=== PATIENT | male | born 1965 | race Caucasian/White ===

== ENCOUNTER 2022-04-19 03:10 | Inpatient (IN) ==
[2022-04-19 03:24] VITALS: BMI 27.1
--- NOTE | 2022-04-19 03:31 | DR.N/VMALE ---
HPI Time Seen Time Seen by Provider: 04/19/22 03:31 Primary Care Physician Primary Care Physician: PATY HPI Comment HPI Comment: PATIENT IS 56YR OLD MALE IN ER WITH NAUSEA, VOMITING ABDOMINAL PAIN TIMES 5 DAYS. ILLNESS STARTED WITH CONSTIPATION. PATIENT HAD LARGE BM. TOOK MILK OF MAGNESIA. NOW HAVING WATERRY STOOL. NO FEVER, DYSURIA OR CHEST PAIN. Complaints Chief Complaint Doctors Comments: ABDOMINAL PAIN, NAUSEA, VOMITING AND DIARRHEA. Chief Complaint:: PT AMBULATORY IN ED WITH C/O N/V X 5 DAYS. STARTED OFF BEING CONSTIPATED THEN HAD LARGE GOOD BM AND NOW WATERY STOOL X 3 DAYS. COVID-19 Coronavirus risk:travel/contact w/high risk person: No Has patient experienced Coronavirus symptoms: No Reviewed Nurses Notes Reviewed: Yes Source History Provided: Patient Mode of Arrival Mode of Arrival: Ambulatory Timing Onset of Chief Complaint: 04/13/22 PMH PMH Past Medical History: Yes Past Medical History: Coronary Artery Disease, Diabetes, Hypertension and [place] Past Surgical History: Yes Surgical History: Ortho Surgery Past Surgical History Comment: HEMORRHOIDECTOMY Family History History of Family Medical Conditions: Yes Family Medical History: Diabetes Mellitus, Cancer, [place], Coronary Artery Disease, Heart Failure, Sudden Cardiac and Hypertension Social History Does patient currently use any type of tobacco product: Yes Have you used tobacco products in the last 12 months: Yes Type of Tobacco Use: Cigarettes Does any household member use tobacco: No Alcohol Use: None Do you use any recreational Drugs:: Yes (METH) Lives With: Spouse Lives Where: Home Travel Risk Coronavirus risk:travel/contact w/high risk person: No Has patient experienced Coronavirus symptoms: No Infectious screening In the last 2 months have you had wt loss of >10#?: NO Have you had fever, night sweats or hemotysis?: No Have you traveled outside the country in the last 6 months?: No Isolation: Standard ROS Review of Systems Constitutional: Weakness and Fatigue; negative Fever Eyes: No Symptoms Reported ENTM: No Symptoms Reported Respiratoy: No Symptoms Reported Cardiovascular: No Symptoms Reported Gastrointestinal/Abdominal: Abdominal Pain, Constipation, Diarrhea, Nausea and Vomiting Genitourinary: No Symptoms Reported; negative Dysuria Neurological: Weakness; negative Headache or Dizziness Musculoskeletal: No Symptoms Reported; negative Muscle Pain Integumentary: No Symptoms Reported; negative Rash or Juandice Hematologic/Lymphatic: No Symptoms Reported; negative Easy Bruising Endocrine: No Symptoms Reported; negative Increased Thirst or Increased Urine Psychiatric: No Symptoms Reported All Other Systems: Reviewed and Negative PE Vital Signs Vitals: Temperature 97.9 F Pulse Rate 78 Respiratory Rate 20 Blood Pressure [Left Arm] 137/80 Blood Pressure 131/72 O2 Sat by Pulse Oximetry 98 General Limitations: No Limitations General Appearance: Alert and In No Apparent Distress Head Head Exam: Normal Inspection and Atraumatic Eyes Eye exam: Normal Appearance; negative Scleral Icterus or Conjunctival Injection ENT ENT Exam: Normal Exam; negative Normal Oropharynx, Normal External Ear Exam or Mucous Membranes Moist Neck Neck Exam: Normal Inspection and Trachea Midline; negative Tenderness Chest Chest Inspection: Normal Inspection and Symmetric Chest Wall Rise; negative Tenderness Respiratory Respiratory Exam: Normal Lung Sounds Bilat; negative Accessory Muscle Use, Chest Wall Tenderness or Respiratory Distress Respiratory Exam: Bilateral: Rhonchi Cardiovascular Cardiovascular Exam: Regular Rate, Normal Rhythm and Normal Heart Sounds; negative Systolic Murmur or Diastolic Murmur Abdominal Exam Abdominal Exam: Soft and Tenderness; negative Normal Bowel Sounds (INCREASE BOWEL SOUNDS.) Abdominal Tenderness: Diffuse and Moderate Rectal Rectal Exam: Deferred Extremities Extremities Exam: Normal Inspection and Normal Capillary Refill Back Back Exam: Normal Inspection; negative (R) CVA Tenderness or (L) CVA Tenderness Neurologic Neurological Exam: Alert and Oriented X3; negative Motor Sensory Deficit Psychiatric Psychiatric Exam: Normal Affect and Normal Mood Skin Skin Exam: Dry; negative Rash MDM Additional Information Obtained Additional Information Obtained From: Old Records Differential Diagnosis Differential Diagnosis: Considerations may Include:: Bowel Obstruction, Gastroenteritis, Inflammatory BD, Pancreatitis and Other (CONSTIPATION.) COURSE Treatment Treatment: SEE ORDERS DONE WHILE PATIENT WAS IN ER. PATIENT WAS MEDICATED FOR PAIN WHILE IN ER. Consultation Consultation Comments: DISCUSSED PATIENT WITH DR. BRISENO, SURGEON. HE WILL ADMIT PATIENT. Education/Counseling Education/Counseling: Patient Educated On: Diagnosis ROR Labs Reviewed Laboratory Results Reviewed?: Yes Result Diagrams: 04/19/22 04:00 04/19/22 04:00 Laboratory: WBC 7.3 X10^3/uL (3.6-10.0) 04/19/22 04:00 RBC 4.36 X10^6/uL (4.7-6.0) L 04/19/22 04:00 Hgb 12.5 g/dL (13.5-18.0) L 04/19/22 04:00 Hct 36.1 % (42.0-54.0) L 04/19/22 04:00 MCV 82.9 fL (80.0-100.0) 04/19/22 04:00 MCH 28.7 pg (27.0-34.0) 04/19/22 04:00 MCHC 34.6 g/dL (33.0-35.0) 04/19/22 04:00 RDW 13.4 % (11.6-16.5) 04/19/22 04:00 Plt Count 187 X10^3/uL (150.0-450.0) 04/19/22 04:00 MPV 8.2 fL (7.4-11.0) 04/19/22 04:00 Neut % (Auto) 69.0 % (42.0-75.0) 04/19/22 04:00 Lymph % (Auto) 21.2 % (21.0-51.0) 04/19/22 04:00 [place] % (Auto) 6.3 % (0.0-13.0) 04/19/22 04:00 Eos % (Auto) 2.8 % (0.9-2.9) 04/19/22 04:00 Baso % (Auto) 0.7 % (0.2-1.0) 04/19/22 04:00 Neut # (Auto) 5.0 x10^3/uL (2.2-4.8) H 04/19/22 04:00 Lymph # (Auto) 1.5 X10^3/uL (1.3-2.9) 04/19/22 04:00 [place] # (Auto) 0.5 x10^3/uL (0.3-0.8) 04/19/22 04:00 Eos # (Auto) 0.2 x10^3/uL (0.0-0.2) 04/19/22 04:00 Baso # (Auto) 0.1 X10^3/uL (0.0-0.1) 04/19/22 04:00 Absolute Nucleated RBC 0.0 /100WBC 04/19/22 04:00 Sodium 137 mmol/L (136-145) 04/19/22 04:00 Corrected Sodium 141 mmol/L (136-145) 04/19/22 04:00 Potassium 4.0 mmol/L (3.5-5.1) 04/19/22 04:00 Chloride 102 mmol/L (98-107) 04/19/22 04:00 Carbon Dioxide 27.6 mmol/L (21-32) 04/19/22 04:00 BUN 21 mg/dL (7-18) H 04/19/22 04:00 Creatinine 0.75 mg/dL (0.70-1.30) 04/19/22 04:00 Est GFR (MDRD) Af Amer > 60 (>60) 04/19/22 04:00 Est GFR (MDRD) Non-Af > 60 (>60) 04/19/22 04:00 Glucose 276 mg/dL (65-99) H 04/19/22 04:00 Hemoglobin A1c 9.1 % 04/19/22 04:00 Calcium 8.7 mg/dL (8.5-10.1) 04/19/22 04:00 Corrected Calcium TNP 04/19/22 04:00 Total Bilirubin 0.40 mg/dL (0.2-1.0) 04/19/22 04:00 AST 12 Units/L (15-37) L 04/19/22 04:00 ALT 19 Units/L (12-78) 04/19/22 04:00 Alkaline Phosphatase 91 Units/L (46-116) 04/19/22 04:00 Total Protein 6.8 g/dL (6.4-8.2) 04/19/22 04:00 Albumin 3.5 g/dL (3.4-5.0) 04/19/22 04:00 Globulin 3.3 g/dL (2.5-4.5) 04/19/22 04:00 Albumin/Globulin Ratio 1.1 Ratio (1.1-2.1) 04/19/22 04:00 Amylase 26 Units/L (25-115) 04/19/22 04:00 Lipase 56 Units/L (73-393) L 04/19/22 04:00 XRAY XRAY Interpreted by: Radiologist (REPORT NOTED.) and Self EKG Rate: 74 [place]: Normal Rhythm: NSR and PVCs Block: None Hypertrophy: None ST: Normal Opioid Opioid Risk Tool Age (Luís box if 16-45): No History of Preadolescent Sexual Abuse: No Total: 0 Total Score Risk Category: Low Risk Copyright: Brandon DILL predicting aberrant behaviors Discharge Plan Diagnosis Discharge Problem: Bowel obstruction, Abdominal pain, Constipation Discharge Plan Patient Disposition: 09 ADMITTED INPATIENT Condition: Stable
[2022-04-19] MEDS ORDERED: MORPHINE SULFATE INJ 4 MG IM ONE (03:41)
[2022-04-19] MEDS ORDERED: COMPAZINE INJ IM ONE (03:41)
[2022-04-19] MEDS ORDERED: MORPHINE SULFATE INJ 4 MG ONE (03:49)
[2022-04-19] MEDS ORDERED: COMPAZINE INJ ONE (03:49)
[2022-04-19 04:12] LABS: BASOPHILS # (AUTO) 0.1 X10^3/uL (0.0-0.1); BASOPHILS % (AUTO) 0.7 % (0.2-1.0); EOSINOPHILS # (AUTO) 0.2 x10^3/uL (0.0-0.2); EOSINOPHILS % (AUTO) 2.8 % (0.9-2.9); HEMATOCRIT 36.1 % (42.0-54.0); HEMOGLOBIN 12.5 g/dL (13.5-18.0); LYMPHOCYTES # (AUTO) 1.5 X10^3/uL (1.3-2.9); LYMPHOCYTES % (AUTO) 21.2 % (21.0-51.0); MEAN CORPUSCULAR HEMOGLOBIN 28.7 pg (27.0-34.0); MEAN CORPUSCULAR HGB CONC 34.6 g/dL (33.0-35.0); MEAN CORPUSCULAR VOLUME 82.9 fL (80.0-100.0); MEAN PLATELET VOLUME 8.2 fL (7.4-11.0); MONOCYTES # (AUTO) 0.5 x10^3/uL (0.3-0.8); MONOCYTES % (AUTO) 6.3 % (0.0-13.0); RED BLOOD COUNT 4.36 X10^6/uL (4.7-6.0); RED CELL DISTRIBUTION WIDTH 13.4 % (11.6-16.5); WHITE BLOOD COUNT 7.3 X10^3/uL (3.6-10.0)
[2022-04-19 04:22] LABS: ALANINE AMINOTRANSFERASE 19 Units/L (12-78); ALBUMIN 3.5 g/dL (3.4-5.0); ALKALINE PHOSPHATASE 91 Units/L (46-116); AMYLASE 26 Units/L (25-115); ASPARTATE AMINO TRANSFERASE 12 Units/L (15-37); BLOOD UREA NITROGEN 21 mg/dL (7-18); CALCIUM 8.7 mg/dL (8.5-10.1); CARBON DIOXIDE 27.6 mmol/L (21-32); CHLORIDE 102 mmol/L (98-107); COR NA(FOR HYPERGLY) 141 mmol/L (136-145); CREATININE 0.75 mg/dL (0.70-1.30); LIPASE 56 Units/L (73-393); SODIUM 137 mmol/L (136-145); TOTAL PROTEIN 6.8 g/dL (6.4-8.2); eGFR NON BLACK RACES > 60 (>60)
--- NOTE | 2022-04-19 04:30 | EKG ---
Test Reason : HYPERKALEMIA Blood Pressure : */* mmHG Vent. Rate : 74 BPM Atrial Rate : 74 BPM P-R Int : 182 ms QRS Dur : 88 ms QT Int : 374 ms P-R-T Axes : 69 16 51 degrees QTc Int : 415 ms Sinus rhythm with premature supraventricular complexes Otherwise normal ECG No previous ECGs available Confirmed by Clyde Edwards ([id number]) on 04/19/2022 8:50:59 AM Referred By: Confirmed By: Clyde Edwards
--- NOTE | 2022-04-19 05:15 | CT ---
STUDY: CT ABDOMEN AND PELVIS WITHOUT IV CONTRASTCOMPARISON: NoneTECHNIQUE: Axial images were obtained of the abdomen and pelvis without IV contrast. Sagittal and coronal reformatted images were provided. All images were reviewed in a variety of windows and levels.RADIATION REDUCTION TECHNIQUE: Automated exposure control, adjustment of the mA or kV according to patient size, or iterative reconstruction techniques were used.HISTORY: PT AMBULATORY IN ED WITH C/O N/V X 5 DAYS. STARTED OFF BEING CONSTIPATED THEN HAD LARGE GOOD BM AND NOW WATERY STOOL X 3 DAYS.FINDINGS:Please note that lack of IV contrast does limit evaluation of the soft tissues and vascular detail.The visualized lower lung zones are clear. The heart size is within normal limits. There is no evidence of a pericardial effusion.The liver, spleen, pancreas, adrenal glands, and kidneys are grossly unremarkable. The gallbladder is grossly unremarkable.There is right-sided nonobstructing nephrolithiasis. There is a 2 mm stone in the urinary bladder. There is a 42 mm incompletely characterized cystic mass in the right kidney.The stomach and colon are grossly unremarkable. Fecal material is seen in the distal small bowel compatible with a small bowel feces sign worrisome for a moderate grade partial small bowel obstruction. There are no inflammatory changes in the right lower quadrant to suggest secondary signs of acute appendicitis. The appendix is normal.PleModerate to large amount of fecal material is seen throughout the GI tract suggesting constipation.Partial visualization of the appendix is normal. The appendix is not seen in its entirety on this examination.There is no evidence of retroperitoneal or mesenteric lymphadenopathy.The visualized bones demonstrate degenerative changes. There are no concerning lytic or blastic lesions identified.IMPRESSION:- There is fecal material in the distal small bowel compatible with small bowel feces sign that is worrisome for small-bowel obstruction. Fluid with air is seen throughout the small bowel also which could represent small bowel enteritis. Constipation is also noted in the proximal and mid colon.- Right-sided nonobstructing nephrolithiasis is notedElectronically signed by: Wellington Glynn (Apr 19, 2022 05:13:30)
[2022-04-19] MEDS ORDERED: MORPHINE SULFATE INJ 2 MG INJ IVP PRN (07:24)
[2022-04-19] MEDS ORDERED: ZOFRAN INJ 4 MG VIAL IVP PRN (07:24)
[2022-04-19] MEDS ORDERED: NS 1,000 ML IV 1,000 ML IV SCH (08:00)
[2022-04-19] MEDS ORDERED: PROTONIX INJ 40 MG VIAL IVP SCH (09:00)
--- NOTE | 2022-04-19 09:34 | RAD ---
HISTORYCough, abdominal painSTUDYChest AP [id number]/21/2022FINDINGSHear t size is normal. [place] are normal. Lung [place] are clear. No pleural effusions are identified. Bony thorax is unremarkable.IMPRESSIONNo significant abnormality identifiedElectronically signed by: YUNIEL BORJA (Apr 19, 2022 09:32:17)
--- NOTE | 2022-04-19 09:35 | RAD ---
HISTORYAbdominal painSTUDYKUBCOMPARISONCT abdomen pelvis same dateFINDINGSThe abdominal gas pattern is nonspecific and nonobstructive. No abnormal masses or abnormal calcifications are identified. The kidneys are obscured by overlying bowel gas. Regional skeleton is intact.IMPRESSIONUnremarkable KUBElectronically signed by: YUNIEL BORJA (Apr 19, 2022 09:33:35)
[2022-04-19] MEDS: ATIVAN INJ 2 MG VIAL IVP PRN ×2 (09:59→15:51)
[2022-04-19] MEDS: D5 1/2 NS 1,000 ML 1,000 ML IV SCH ×2 (10:00→17:07)
[2022-04-19] MEDS: FLAGYL IV PREMIX 500 MG BAG 500 MG/100 ML BAG IV SCH ×3 (10:00→20:26)
--- NOTE | 2022-04-19 12:47 | DR.CONSULT ---
Consult - Consultation for Day of: Date: 04/19/22 - Chief Complaint Chief Complaint: ABDOMINAL PAIN, N/V/D - History of Present Illness History of Present Illness: PT IS 56 WM, ER ADMISSION WITH COMPLAINTS OF ABDOMINAL PAIN WITH N/V/D FOR THE PAST WEEK. PT STATES HE HAS FELT LIKE HE HAD A LOW GRADE FEVER THIS PAST WEEK. PT DENIES ANY BLOOD IN STOOL. PT REPORTS PMH OF DM ON LEVEMIR AND OZEMPIC. PT REPORTS LAST EKG AND COLONOSCOPY <2 YEARS AGO[address] PT HAD [address] IN ER REVEALING SBO. PT WAS ADMITTED FOR DR MORRISON FOR SURGICAL EVALUATION AND DUE TO PMH OF DM, A MEDICAL CONSULT WAS ORDERED. PT DENIES ANY PMH OF CAD. PT REPORTS HE DOES SMOKE, DENIES ANY ETOH OR DRUG USE. - Past Medical History Past Medical History: Diabetes, Hypertension, [place] - Past Surgical History Surgical History: Ortho Surgery - Family History Family Medical History: Diabetes Mellitus, [place], Heart Failure, Hypertension - Social History Does patient currently use any type of tobacco product: Yes Have you used tobacco products in the last 12 months: Yes Type of Tobacco Use: Cigarettes How many years tobacco product used: 30 Does any household member use tobacco: Yes Alcohol Use: None Drug Use: None, Prescription Drugs - Medications Home Medications: No Known Drug Allergies Allergy (Verified 08/19/21 15:44) CONTINUE taking the following medications amlodipine 5 mg tablet 1 tab PO QAM 04/19/22 [History] aripiprazole 10 mg tablet 10 mg PO QDAY 04/19/22 [History] diclofenac potassium 50 mg tablet 50 mg PO BID 04/19/22 [History] duloxetine 60 mg capsule,delayed release 1 cap PO BID 04/19/22 [History] gabapentin 600 mg tablet 1 tab PO TID 04/19/22 [History] hydrochlorothiazide 25 mg tablet 1 tab PO QAM 04/19/22 [History] hydrocodone 10 mg-acetaminophen 325 mg tablet 1 tab PO Q4H PRN 04/19/22 [History] insulin detemir U-100 100 unit/mL subcutaneous solution (Levemir U-100 Insulin) 35 unit subcut BID 04/19/22 [History] insulin regular human 100 unit/mL injection solution (Novolin R Regular U-100 Insulin) 12 - 15 unit QID 04/19/22 [History] meloxicam 15 mg tablet 15 mg PO QDAY 04/19/22 [History] mirtazapine 45 mg tablet 1 tab PO QPM 04/19/22 [History] olanzapine 20 mg tablet 1 tab PO QPM 04/19/22 [History] quetiapine 100 mg tablet 1.5 tab PO QPM 04/19/22 [History] tizanidine 4 mg capsule 4 mg PO Q8H PRN 04/19/22 [History] tramadol 50 mg tablet 50 mg PO Q6H PRN 04/19/22 [History] - Review of Systems Constitutional: Fever, Weakness, Malaise Eyes: No Symptoms Reported ENT: No Symptoms Reported Respiratory: No Symptoms Reported Cardiovascular: No Symptoms Reported Gastrointestinal: Nausea, Vomiting, Abdominal Pain, Diarrhea Genitourinary: No Symptoms Reported Musculoskeletal: No Symptoms Reported Skin: No Symptoms Reported Neurological: No Symptoms Reported - Physical Exam Vital Signs: Temperature 97.2 F Pulse Rate [Right Brachial] 73 Pulse Rate 78 Respiratory Rate 18 Blood Pressure [Left Arm] 165/88 Blood Pressure 131/72 O2 Sat by Pulse Oximetry 98 Oriented: Normal Ear: Normal Nose: Normal Throat: Normal Respiratory: RLL Diminished, LLL Diminished Cardiovascular: Normal. negative: Edema : Normal Auscultation: Bowel Sounds: Increased Tenderness: RLQ, LLQ Skin: Decreased [place] Musculoskeletal: Normal Psychiatric: Normal Speech Pattern: Clear, Appropriate (PLAN TO REVIEW AND RESUME HOME MEDICATION FOR BLOOD SUGAR AND BLOOD PRESSURE MANAGMENT, HOLDING OZEMPIC.) - Plan Plan: PLAN TO CONTINUE DR MORRISON'S SURGICAL PLAN OF CARE WITH NPO, GENTLE IV HYDRATION, BS CONTROL, OBTAIN CXR AND STOOL STUDIES. START ON IV FLAGYL FOR DIARRHEAL ILLNESS - Allergies Allergies/Adverse Reactions: Allergies Allergy/AdvReac Type Severity Reaction Status Date / Time No Known Drug Allergies Allergy Verified 08/19/21 15:44
[2022-04-19] MEDS: NovoLIN R (or HumuLIN R) SC PRN ×3 (13:06→20:35)
[2022-04-20] MEDS: D5 1/2 NS 1,000 ML 1,000 ML IV SCH ×2 (02:54→09:44)
[2022-04-20] MEDS: FLAGYL IV PREMIX 500 MG BAG 500 MG/100 ML BAG IV SCH ×2 (03:50→09:43)
[2022-04-20 05:48] LABS: BASOPHILS % (AUTO) 0.3 % (0.2-1.0); EOSINOPHILS # (AUTO) 0.2 x10^3/uL (0.0-0.2); EOSINOPHILS % (AUTO) 3.5 % (0.9-2.9); HEMATOCRIT 37.1 % (42.0-54.0); HEMOGLOBIN 12.8 g/dL (13.5-18.0); LYMPHOCYTES # (AUTO) 1.7 X10^3/uL (1.3-2.9); LYMPHOCYTES % (AUTO) 29.3 % (21.0-51.0); MEAN CORPUSCULAR HEMOGLOBIN 28.4 pg (27.0-34.0); MEAN CORPUSCULAR HGB CONC 34.5 g/dL (33.0-35.0); MEAN CORPUSCULAR VOLUME 82.2 fL (80.0-100.0); MEAN PLATELET VOLUME 8.4 fL (7.4-11.0); MONOCYTES # (AUTO) 0.4 x10^3/uL (0.3-0.8); NEUTROPHILS # (AUTO) 3.6 x10^3/uL (2.2-4.8); NEUTROPHILS % (AUTO) 59.9 % (42.0-75.0); RED BLOOD COUNT 4.51 X10^6/uL (4.7-6.0); RED CELL DISTRIBUTION WIDTH 13.4 % (11.6-16.5)
[2022-04-20 06:23] LABS: ALANINE AMINOTRANSFERASE 19 Units/L (12-78); ALBUMIN 3.4 g/dL (3.4-5.0); ALKALINE PHOSPHATASE 88 Units/L (46-116); ASPARTATE AMINO TRANSFERASE 21 Units/L (15-37); BLOOD UREA NITROGEN 12 mg/dL (7-18); CALCIUM 8.6 mg/dL (8.5-10.1); CARBON DIOXIDE 27.5 mmol/L (21-32); CHLORIDE 103 mmol/L (98-107); COR NA(FOR HYPERGLY) 141 mmol/L (136-145); CREATININE 0.68 mg/dL (0.70-1.30); SODIUM 139 mmol/L (136-145); TOTAL PROTEIN 6.7 g/dL (6.4-8.2); eGFR NON BLACK RACES > 60 (>60)
[2022-04-20 08:12] VITALS: BP 157/93
[2022-04-20] MEDS ORDERED: PROTONIX INJ 40 MG VIAL IVP SCH (09:00)
--- NOTE | 2022-04-20 10:15 | RAD ---
KUBHISTORY: ABDOMINAL PAIN, SBOStudy: Single flat views of the abdomenComparison:NoneFindings:There is a normal bowel gas pattern.No free air..No abnormal calcifications or abnormal soft tissue shadows. No acute bony abnormalities.IMPRESSION:1.No evidence for acute abdominal pathology.Electronically signed by: MIKHAIL CRAMER (Apr 20, 2022 10:13:40)
== END 2022-04-20 11:10 | disposition home or self-care (01) | DRG 390 ==
LOC: ER 03:12 → MED/SURG 06:10
PROVIDERS: ADMIT Surgery; ATTEND Surgery
DX: R11.2 Nausea with vomiting, unspecified; R10.84 Generalized abdominal pain; Z72.0 Tobacco use; F32.89 Other specified depressive episodes; E11.65 Type 2 diabetes mellitus with hyperglycemia; Z79.4 Long term (current) use of insulin; K59.09 Other constipation; I25.10 Atherosclerotic heart disease of native coronary artery without angina pectoris; E87.5 Hyperkalemia; K56.690 Other partial intestinal obstruction; I10 Essential (primary) hypertension; F41.8 Other specified anxiety disorders